=== PATIENT | female | born 1940 | race Caucasian/White ===

== ENCOUNTER → 2016-11-21 | Outpatient (CLI) | payer MEDICARE, OTHER ==
[~2016-11-21] MED LIST: AMBIEN 5MG TABLE5 MG PO; COMPAZINE 110 MG/TAB PO; DIOVAN HCT PO; ERY-TAB250 MG PO; FERROUS SU325 MG/TAB PO; FLONASE NASAL S16 GM NS; FOLIC ACID PO; GLUCOSAMINE/CHONDROI PO; I-CAPS PO; MAG-OX 400400 MG/TAB PO; NORCO 325 MG-51 TAB PO; PHARMASSURE ZIN50 MG PO; PHENERGAN 25 TA25 MG PO; PREVACID 30MG30 M1 PO; SIMVASTATIN10 MG PO; STOOL SOFTENER100 MG PO; TYLENOL PM PO; VITAMIN C250250 MG PO; ZOFRAN8 MG PO
== END ==
LOC: COL.RAD 11-20 07:30
DX: C16.0 Malignant neoplasm of cardia (principal); D37.6 Neoplasm of uncertain behavior of liver, gallbladder and bile ducts; M79.89 Other specified soft tissue disorders; I71.2 Thoracic aortic aneurysm, without rupture; K80.80 Other cholelithiasis without obstruction; R91.8 Other nonspecific abnormal finding of lung field; R64 Cachexia; Z92.3 Personal history of irradiation; Z92.21 Personal history of antineoplastic chemotherapy; Z90.710 Acquired absence of both cervix and uterus
CPT/HCPCS: J1644; Q9967

== ENCOUNTER 2018-03-26 10:25 | Emergency (ER) | payer MEDICARE, OTHER ==
[~2018-03-26] VITALS: Ht 157.5 cm; Wt 35.9 kg
[2018-03-26 10:31] VITALS: BP 100/61; PULSE 70; TEMP 97.9
[2018-03-26] MEDS ORDERED: CARDIZEM 60MG T60 MG PO (10:46)
[2018-03-26] MEDS ORDERED: CEPHALEXIN250 M1 PO (12:25)
== END 2018-03-26 12:31 | disposition home or self-care (01) ==
LOC: COL.ER 10:25
DX: S61.412A Laceration without foreign body of left hand, initial encounter (principal); S00.81XA Abrasion of other part of head, initial encounter; Z88.2 Allergy status to sulfonamides; W01.0XXA Fall on same level from slipping, tripping and stumbling without subsequent striking against object, initial encounter; W26.8XXA Contact with other sharp object(s), not elsewhere classified, initial encounter; Y92.009 Unspecified place in unspecified non-institutional (private) residence as the place of occurrence of the external cause

== ENCOUNTER 2018-05-15 07:10 | Emergency (ER) | payer MEDICARE, OTHER ==
[~2018-05-15] VITALS: Ht 157.5 cm; Wt 36.4 kg
[~2018-05-15 07:10] MED LIST changes: +CARDIZEM 60MG T60 MG PO; +CEPHALEXIN250 M1 PO
[2018-05-15 07:12] VITALS: TEMP 98.2
[2018-05-15] MEDS ORDERED: TYLENOL 500MG500 MG PO (07:18)
[2018-05-15] MEDS ORDERED: NORCO2.5 PO (08:45)
[2018-05-15 08:55] VITALS: BP 148/89; PULSE 74
== END 2018-05-15 08:56 | disposition home or self-care (01) ==
LOC: COL.ER 07:10
DX: M54.5 Low back pain (principal); I10 Essential (primary) hypertension; Z90.89 Acquired absence of other organs; Z90.710 Acquired absence of both cervix and uterus; Z88.2 Allergy status to sulfonamides
CPT/HCPCS: J1885

== ENCOUNTER 2018-12-09 14:21 | Emergency (ER) | payer MEDICARE, OTHER ==
[~2018-12-09] VITALS: Ht 154.9 cm; Wt 35.5 kg
[~2018-12-09 14:21] MED LIST changes: +NORCO2.5 PO; +TYLENOL 500MG500 MG PO
[2018-12-09 14:27] VITALS: TEMP 98.1
[2018-12-09] MEDS ORDERED: PRILOSEC 20MG20 MG PO (14:44)
[2018-12-09 16:30] VITALS: BP 167/86; PULSE 67
[2018-12-09] MEDS ORDERED: NORCO 325 MG-51 TAB PO (16:49)
== END 2018-12-09 17:15 | disposition home or self-care (01) ==
LOC: COL.ER 14:21
DX: S82.001A Unspecified fracture of right patella, initial encounter for closed fracture (principal); Z85.028 Personal history of other malignant neoplasm of stomach; W01.0XXA Fall on same level from slipping, tripping and stumbling without subsequent striking against object, initial encounter; Y92.512 Supermarket, store or market as the place of occurrence of the external cause
CPT/HCPCS: L1846

== ENCOUNTER 2019-01-14 13:40 | Inpatient (IN) | payer MEDICARE, OTHER ==
[~2019-01-14] VITALS: Ht 154.9 cm; Wt 34.2 kg
[~2019-01-14 13:40] MED LIST changes: +PRILOSEC 20MG20 MG PO
[2019-01-14] MEDS ORDERED: COLACE 100100 MG/CAP PO (15:01)
[2019-01-14] MEDS ORDERED: OCUVITE1 TA1 PO (15:01)
[2019-01-14 16:24] LABS: BASO % 0.2 % (0.0-2.0); EOS % 0.4 % (0-4.0); GRAN # 8.7 (1.4-6.5); GRAN % 83.9 % (42.2-75.2); HEMATOCRIT 39.6 % (37.0-47.0); HEMOGLOBIN 13.6 g/dl (12.5-16.0); LYMPH # 0.7 (1.2-3.4); LYMPH % 7.1 % (20.0-51.0); MEAN CELL VOLUME 99 fl (80.0-100.0); MEAN CORPUSCULAR HEMOGLOBIN 34 pg (27.0-31.0); MEAN CORPUSCULAR HGB CONC 34 g/dl (33.0-37.0); MEAN PLATELET VOLUME 8.8 fl (7.4-10.4); MONO # 0.8 (0.1-0.6); MONO % 8.1 % (1.7-9.3); PLATELET COUNT 165 K/mm3 (130-400); REDCELL DISTRIBUTION WIDTH-CV 13.4 % (11.5-14.5)
[2019-01-14 16:33] LABS: COLLECTION METHOD CATHETER
[2019-01-14 16:39] LABS: ALBUMIN 3.1 gm/dL (3.5-5.0); BILIRUBIN,TOTAL 0.8 mg/dL (0.0-1.0); C-REACTIVE PROTEIN 5.3 mg/dL (0.0-0.9); CALCIUM 8.9 mg/dL (8.4-10.2); CREATININE, serum 0.46 (0.52-1.25); PHOSPHOROUS 2.7 mg/dL (2.5-4.5); POTASSIUM 4.2 mmol/L (3.4-5.0); TOTAL PROTEIN 6.1 gm/dL (6.4-8.2)
[2019-01-14 16:43] LABS: MUCOUS Present /lpf; PH 7 (5-8); SQUAMOUS EPITHELIAL 0-2 /hpf; URINE APPEARANCE Clear; URINE BACTERIA None Seen /hpf; URINE BILIRUBIN Negative (NEGATIVE); URINE BLOOD Negative (NEGATIVE); URINE COLOR Yellow; URINE GLUCOSE Negative (NEGATIVE); URINE KETONE Negative (NEGATIVE); URINE LEUKOCYTE ESTERASE Negative (NEGATIVE); URINE NITRATE Negative (NEGATIVE); URINE PROTEIN(semi-quant) Negative (NEGATIVE); URINE RBC 0-2 /hpf; URINE UROBILINOGEN Negative (NEGATIVE)
--- NOTE | 2019-01-14 17:48 | NUR ---
Patient up from ER. Notified Dr. Williamson that patient is up in room 323. Per Dr. Williamson patient was seen by her in the ER, will enter orders.
[2019-01-14 17:50] VITALS: BP 169/85; PULSE 71; TEMP 98.3
--- NOTE | 2019-01-14 19:14 | NUR ---
Reported off to Jackie MARIE.
[2019-01-14 19:59] VITALS: BP 167/77; PULSE 70; TEMP 98.2
--- NOTE | 2019-01-14 20:00 | NUR ---
PATIENT IS ORIENTED BUT DROWSY. VERY THIN, MALNURISHED FEMALE WITH MANY BONY PROMINENCES. HEALING STAGE 1 ULCER TO COCCYX WITH DRESSING. PATIENT ADMITED FOR FAILURE TO THRIVE. DNR. HX OF GI CANCER. PATIENT HAS J TUBE PLACE ON THURSDAY AT . J TUBE HAS FOUL ODOR WITH MOD AMOUNTS OF YELLOW DRAINAGE NOTED. ABD APPLIED WITH PAPER TAPE OVER J TUBE. NO TUBE FEEDINGS HAVE BEEN STARTED YET. ER REPORTED LITTLE URINE OUTPUT. PATIENT GIVEN FLUIDS BOLUS AND STRAIGHT CATHED FOR 75CC. PATIENT REPORTS ITS NORMAL FOR HER TO ONLY VOID TWICE IN 24 HOURS. IV FLUIDS INFUSING INTO LEFT FORARM IV VIA PUMP. DIETARY CONSULT ORDERED. PT/OT/ST WORKING WITH PATIENT. PATIENT IS VERY WEAK WITH NO APPETITE. DENIES C/O N/V AT THIS TIME. HEAD TO TOE ASSESSMENT COMPLETE. CALL LIGHT IN REACH. LIGHTS TURNED DOWN.
[2019-01-15] VITALS (7 sets, daily range): BP systolic 142–166; BP diastolic 69–83; PULSE 68–79; TEMP 97.5–98.3
[2019-01-15 06:33] LABS: ALBUMIN 2.9 gm/dL (3.5-5.0); BILIRUBIN,TOTAL 0.9 mg/dL (0.0-1.0); CALCIUM 8.7 mg/dL (8.4-10.2); CREATININE, serum 0.5 (0.52-1.25); MAGNESIUM 1.9 mg/dL (1.6-2.3); PHOSPHOROUS 2.8 mg/dL (2.5-4.5); POTASSIUM 4.6 mmol/L (3.4-5.0); TOTAL PROTEIN 5.7 gm/dL (6.4-8.2)
--- NOTE | 2019-01-15 08:00 | NUR ---
PATIENT IS RESTING IN BED THIS MORNING WITH FAMILY PRESENT AT THE BEDSIDE. PATIENT IS A&OX4. VSS. BOWEL SOUNDS HYPOACTIVE ALL FOUR QUADRANTS. PATIENT HAS HAD NAUSEA, BUT DENIES EPISODES OF VOMITING. ALL LUNG FRIEDMAN DIMINISHED UPON AUSCULTATION. PATIENT DENIES SOB OR A PRODUCTIVE COUGH. PATIENT PASSING FLATUS. J-TUBE TO ABDOMEN AND IS CLAMPED. MALODORUS DRAINAGE PRESENT ON ABD PAD. STAGE 1 PRESSURE ULCER TO COCCYX, BARRIER CREAM AND NEW MEPLEX APPLIED. GENERALIZED WEAKNESS NOTED. IV FLUIDS INFUSING TO LEFT FOREARM IV VIA PUMP. NATHAN REPORTS PAIN IN HER SHOULDERS. K-PAD APPLIED TO UPPER BACK. CALL LIGHT WITHIN REACH. PATIENT DENIES ANY OTHER NEEDS AT THIS TIME.
--- NOTE | 2019-01-15 11:33 | NUR ---
, grandson and grandaughter were present. Nurse came in during my visit. Family and patient were in good spirits. I visited, listened, provided spiritual care, and prayed with the family.
--- NOTE | 2019-01-15 13:00 | NUR ---
PATIENT'S DIET ADVANCED TO MECHANICAL SOFT. PATIENT TOLERATED LUNCH WITHOUT ANY COMPLAINTS OF N/V.
--- NOTE | 2019-01-15 19:20 | NUR ---
PATIENT'S J-TUBE FLUSHED WITH 30 MLS OF FREE WATER. TUBE FEEDING INITIATED AT 40 MLS/HR. HOB AT 35 DEGREE ANGLE. K-PAD IN PLACE. SCD TO LLE. BRACE TO RLE. CALL LIGHT WITHIN REACH. REPORT GIVEN TO FRANK YARBROUGH.
--- NOTE | 2019-01-15 20:00 | NUR ---
PATIENT IS VERY TIRED TONIGHT AND WANTING TO GO TO BED EARLY. TUBE FEEDINGS STARTED, PATIENT TOLERATING WELL SO FAR. HEAD TO TOE ASSESSMENT COMPLETE. VSS. NO C/O PAIN. LIGHTS TURNED DOWN. PATIENT TRYING TO SLEEP. CALL LIGHT IN REACH.
[2019-01-16 04:00] VITALS: BP 153/73; PULSE 67; TEMP 97.5
--- NOTE | 2019-01-16 07:40 | NUR ---
PATIENT'S J-TUBE FEEDING STOPPED PER BAKERY MACHINE MECHANIC ORDERS. PATIENT TOELRATED WELL. J-TUBE FLUSHED WITH 30 MLS OF FREE WATER. J-TUBE CLAMPED. J-TUBE SITE CLEANED AND RE-DRESSED WITH DRAIN GAUZE, ABD PAD AND HYPAFIX. CALL LIGHT WITHIN REACH. NO OTHER NEEDS AT THIS TIME.
[2019-01-16 08:00] VITALS: BP 118/69; PULSE 66; TEMP 98.4
--- NOTE | 2019-01-16 08:00 | NUR ---
PATIENT IS DROWSY AND RESTING IN BED THIS MORNING, BUT IS EASILY AROUSABLE TO NAME. PATIENT IS A&OX4. VSS. BOWEL SOUNDS ACTIVE ALL FOUR QUADRANTS. PATIENT TOLERATING MECHANICAL SOFT DIET AND NOCTURNAL TUBE FEEDINGS WITHOUT ANY COMPLAINTS OF N/V. GENERALIZED WEAKNESS NOTED. J-TUBE TO ABDOMEN WITH MALODORUS DRAINAGE ON DRESSING NOTED. REDNESS UNDER J-TUBE DRESSING NOTED. DR. DENISE NOTIFIED. STAGE 1 PRESSURE ULCER TO COCCYX WITH MEPLEX IN PLACE. INT TO LEFT FOREARM. POSITIVE PEDAL PULSES EQUAL BILATERALLY. PRESENT AT THE BEDSIDE. CALL LIGHT WITHIN REACH. PATIENT DENIES ANY OTHER NEEDS AT THIS TIME.
[2019-01-16] MEDS ORDERED: COLACE 100100 MG/CAP PO (11:52)
[2019-01-16] MEDS ORDERED: MIRALAX PA17 GM/Dose PO (11:53)
[2019-01-16] MEDS ORDERED: DESENEX21 TP (11:53)
--- NOTE | 2019-01-16 11:57 | NUR ---
protective services case worker met with patient to further discuss discharge plan regarding home health options. Patient stated she is scheduled to start physical therapy for her fractured patella with [facility] on 01/19/19 and desire assistance via home health with bathing and physical therapy prior to starting [facility] physical therapy. protective services case worker provided the Medicare home health options.gov resource list. Patient chose [facility] and social sciences chair faxed face sheet, -progress notes, physical therapy evaluations, and history and physical to [phone] to make a home health referral. Patient's home phone number is [phone], her cell phone is [phone], and her 's (Bill) cell phone is [phone]. Patient currently receives [employer] cleaning services every 2 weeks at home which is $115 per visit for 1-2 hours of cleaning for 2 [employer] employees. youth services librarian will follow as needed once hearing on acceptance from [facility].
[2019-01-16 12:12] VITALS: BP 157/77; PULSE 72; TEMP 98.4
--- NOTE | 2019-01-16 15:50 | NUR ---
PATIENT'S LEFT FOREARM INT DISCONTINUED PER PENDING DISCHARGE. PATIENT TOLERATED WELL. DISCHARGE INSTRUCTIONS REVIEWED WITH PATIENT AND . ALL QUESTIONS ANSWERED. PATIENT PERSONAL BELONGINGS AND SUPPLIES GATHERED. PATIENT TAKEN TO PERSONAL VEHICLE VIA WHEELCHAIR BY SURGICAL STAFF. PATIENT DISCHARGED.
== END 2019-01-16 15:50 | disposition home health service (06) | DRG 641 ==
LOC: COL.ER 13:40 → SURG 17:04
PROVIDERS: Emergency Medicine; ADMIT Family Medicine
DX: E43 Unspecified severe protein-calorie malnutrition (principal); Z68.1 Body mass index [BMI] 19.9 or less, adult; R62.7 Adult failure to thrive; Z66 Do not resuscitate; L89.151 Pressure ulcer of sacral region, stage 1; Z85.028 Personal history of other malignant neoplasm of stomach; R53.81 Other malaise; S82.001D Unspecified fracture of right patella, subsequent encounter for closed fracture with routine healing; Z91.048 Other nonmedicinal substance allergy status; Z88.2 Allergy status to sulfonamides; K59.00 Constipation, unspecified; Z93.4 Other artificial openings of gastrointestinal tract status; E16.2 Hypoglycemia, unspecified; E55.9 Vitamin D deficiency, unspecified
CPT/HCPCS: 99222-AI; 99232-AI; 99239; J7030

== ENCOUNTER 2019-08-03 16:58 | Emergency (ER) | payer MEDICARE, OTHER ==
[~2019-08-03] VITALS: Ht 154.9 cm; Wt 45.0 kg
[~2019-08-03 16:58] MED LIST changes: +COLACE 100100 MG/CAP PO; +DESENEX21 TP; +MIRALAX PA17 GM/Dose PO; +OCUVITE1 TA1 PO
[2019-08-03 17:00] VITALS: BP 138/67; TEMP 97.7
[2019-08-03 18:00] VITALS: PULSE 76
== END 2019-08-03 18:00 | disposition home or self-care (01) ==
LOC: COL.ER 16:58
DX: K94.23 Gastrostomy malfunction (principal); Z85.028 Personal history of other malignant neoplasm of stomach

== ENCOUNTER 2019-08-23 11:55 | Emergency (ER) | payer MEDICARE, OTHER ==
[~2019-08-23] VITALS: Ht 154.9 cm; Wt 45.0 kg
[2019-08-23 12:04] VITALS: BP 117/68; TEMP 98.3
[2019-08-23 13:09] VITALS: PULSE 75
== END 2019-08-23 13:06 | disposition home or self-care (01) ==
LOC: COL.ER 11:55
DX: K94.23 Gastrostomy malfunction (principal)
CPT/HCPCS: 41013; B4087

== ENCOUNTER 2019-09-20 15:39 | Emergency (ER) | payer MEDICARE, OTHER ==
[~2019-09-20] VITALS: Ht 157.5 cm; Wt 45.5 kg
[2019-09-20 15:51] VITALS: BP 137/89; TEMP 98.2
[2019-09-20] MEDS ORDERED: CEPHALEXIN500 M1 PO (17:09)
[2019-09-20 17:13] VITALS: PULSE 76
== END 2019-09-20 17:13 | disposition home or self-care (01) ==
LOC: COL.ER 15:39
DX: S61.213A Laceration without foreign body of left middle finger without damage to nail, initial encounter (principal); Z23 Encounter for immunization; W26.8XXA Contact with other sharp object(s), not elsewhere classified, initial encounter; Y92.009 Unspecified place in unspecified non-institutional (private) residence as the place of occurrence of the external cause

== ENCOUNTER 2019-10-21 10:37 | Emergency (ER) | payer MEDICARE, OTHER ==
[~2019-10-21] VITALS: Ht 157.5 cm; Wt 46.4 kg
[~2019-10-21 10:37] MED LIST changes: +CEPHALEXIN500 M1 PO
[2019-10-21 10:54] VITALS: BP 140/76; PULSE 68; TEMP 97.2
== END 2019-10-21 11:30 | disposition home or self-care (01) ==
LOC: COL.ER 10:37
DX: Z43.1 Encounter for attention to gastrostomy (principal)
CPT/HCPCS: 40113

== ENCOUNTER 2020-05-31 10:44 | Emergency (ER) | payer MEDICARE, OTHER ==
[~2020-05-31] VITALS: Ht 157.5 cm; Wt 48.2 kg
[2020-05-31 11:02] VITALS: TEMP 97.9
[2020-05-31 11:54] VITALS: BP 124/81; PULSE 76
== END 2020-05-31 11:53 | disposition home or self-care (01) ==
LOC: COL.ER 10:44
DX: K94.23 Gastrostomy malfunction (principal); Z88.2 Allergy status to sulfonamides
CPT/HCPCS: 40113

== ENCOUNTER 2020-06-06 08:58 | Emergency (ER) | payer MEDICARE, OTHER ==
[~2020-06-06] VITALS: Ht 157.5 cm; Wt 48.2 kg
[2020-06-06 09:04] VITALS: BP 138/94; PULSE 78; TEMP 98.4
== END 2020-06-06 09:20 | disposition home or self-care (01) ==
LOC: COL.ER 08:58
DX: K94.23 Gastrostomy malfunction (principal)
CPT/HCPCS: 40129

== ENCOUNTER 2021-06-19 09:58 | Emergency (ER) | payer MEDICARE, OTHER ==
[~2021-06-19] VITALS: Ht 154.9 cm; Wt 50.0 kg
[2021-06-19 10:20] VITALS: BP 146/96; TEMP 98.8
[2021-06-19 11:14] VITALS: PULSE 76
== END 2021-06-19 11:14 | disposition home or self-care (01) ==
LOC: COL.ER 09:58
DX: K94.23 Gastrostomy malfunction (principal)
CPT/HCPCS: 31860; A4314

== ENCOUNTER → 2021-06-26 | Day surgery (SDC) | payer MEDICARE, OTHER ==
[2021-06-26 08:10] VITALS: BP 127/95; PULSE 76
== END ==
LOC: SDCO 07:42
DX: Z46.59 Encounter for fitting and adjustment of other gastrointestinal appliance and device (principal)
CPT/HCPCS: 40129

== ENCOUNTER → 2021-06-28 | Outpatient (CLI) | payer MEDICARE, OTHER | LOC: COL.RAD 08:39 | DX: R13.14 Dysphagia, pharyngoesophageal phase (principal) ==

== ENCOUNTER 2021-08-28 08:47 | Emergency (ER) | payer MEDICARE, OTHER ==
[~2021-08-28] VITALS: Ht 157.5 cm; Wt 50.0 kg
[2021-08-28 09:25] VITALS: TEMP 98
[2021-08-28] MEDS ORDERED: LEVAQUIN 750MG750 M1 PO (10:31)
[2021-08-28] MEDS ORDERED: TESSALON P100 MG/CAP PO (10:31)
[2021-08-28 10:38] VITALS: BP 136/81; PULSE 92
== END 2021-08-28 10:42 | disposition home or self-care (01) ==
LOC: COL.ER 08:47
DX: J18.9 Pneumonia, unspecified organism (principal); Z88.2 Allergy status to sulfonamides; Z20.822 Contact with and (suspected) exposure to COVID-19

== ENCOUNTER → 2021-10-03 | Outpatient (CLI) | payer MEDICARE, OTHER ==
[~2021-10-03] MED LIST changes: +LEVAQUIN 750MG750 M1 PO; +TESSALON P100 MG/CAP PO
== END ==
LOC: COL.RAD 12:11
DX: M50.21 Other cervical disc displacement, high cervical region (principal)

== ENCOUNTER 2022-05-05 16:27 | Emergency (ER) | payer MEDICARE, OTHER ==
[~2022-05-05] VITALS: Ht 154.9 cm; Wt 52.3 kg
[2022-05-05 16:50] VITALS: TEMP 98.1
[2022-05-05 19:16] VITALS: BP 161/92; PULSE 68
== END 2022-05-05 19:28 | disposition home or self-care (01) ==
LOC: COL.ER 16:27
DX: U07.1 COVID-19 (principal)
CPT/HCPCS: Q0222

== ENCOUNTER 2023-10-27 16:45 | Observation (INO) | payer MEDICARE ==
[~2023-10-27] VITALS: Ht 154.9 cm; Wt 55.5 kg
--- NOTE | 2023-10-27 00:30 | NUR ---
Providers H&P note says to continue home tube feedings and hospitalist verbalized verification to continue home tube feeding with supplies patient brought from home.
[2023-10-27] MEDS ORDERED: fentaNYL 50 MCG/ML 2 ML VIAL IV ONE (18:30)
[2023-10-27 18:44] LABS: BASO % 0.5 % (0.0-2.0); EOS # 0.1 K/mm3 (0.0-0.7); EOS % 1.2 % (0.0-4.0); GRAN % 60.8 % (42.2-75.2); HEMATOCRIT 41.7 % (37.0-47.0); HEMOGLOBIN 13.7 g/dl (12.5-16.0); LYMPH # 1.9 K/mm3 (1.2-3.4); LYMPH % 23.6 % (20.0-51.0); MEAN CELL VOLUME 103 fl (80.0-100.0); MEAN CORPUSCULAR HEMOGLOBIN 34 pg (27-31); MEAN CORPUSCULAR HGB CONC 33 g/dl (33.0-37.0); MEAN PLATELET VOLUME 9.3 fl (7.4-10.4); MONO # 1.1 K/mm3 (0.1-0.6); MONO % 13.7 % (1.7-9.3); PLATELET COUNT 261 K/mm3 (130-400); RED BLOOD COUNT 4.04 M/mm3 (4.10-5.30); REDCELL DISTRIBUTION WIDTH-CV 13.6 % (11.5-14.5)
[2023-10-27 19:14] LABS: ALBUMIN 3.7 gm/dL (3.4-4.8); BILIRUBIN,TOTAL 0.4 mg/dL (0.2-1.2); C-REACTIVE PROTEIN 0.24 mg/dL (0.00-0.50); CALCIUM 9.5 mg/dL (8.4-10.2); CREATININE, serum 0.93 mg/dL (0.57-1.11); POTASSIUM 4.7 mmol/L (3.5-4.5); TOTAL PROTEIN 7.2 gm/dL (6.2-8.1)
[2023-10-27] MEDS ORDERED: diphenhydrAMINE 50 MG/ML 1 ML VIAL IV ONE (19:45)
--- NOTE | 2023-10-27 23:05 | NUR ---
Recievied report from FRANK Antonio. All questions answered.
[2023-10-27] MEDS ORDERED: VITAMIN D31000 I1 PO (23:16)
--- NOTE | 2023-10-27 23:30 | NUR ---
Patient arrived to the unit at this time with at bedside. Rates her pain at 7/10 at this time. Water and warm blanket provided. Home tube feeding running at 75mL/hr. Assessment and med rec complete. IV in right AC flushes easily with no complications. Oriented patient to room, bed, call light, bathroom, and phone. Denies any needs at this time. Call light and personal items in reach. Bed in low position and bed alarm on.
[2023-10-28] VITALS (8 sets, daily range): BP systolic 117–153; BP diastolic 66–84; PULSE 71–78; TEMP 97.9–98.2
--- NOTE | 2023-10-28 | NUR ---
Tension release massage offered to patient. Massaged patient for about 10 minutes. Patient stated that it did help some and now rates her pain about 5-6/10 pain.
[2023-10-28] MEDS ORDERED: fentaNYL 50 MCG/ML 2 ML VIAL IV PRN (00:15)
[2023-10-28] MEDS ORDERED: Polyethylene Glycol 3350 17 GM PDS PO PRN (00:30)
[2023-10-28] MEDS ORDERED: oxyCODONE 5 MG TAB PO PRN (00:30)
[2023-10-28] MEDS ORDERED: Ibuprofen 400 MG TAB PO PRN (00:30)
[2023-10-28] MEDS ORDERED: Ondansetron 4 MG/2 ML VIAL IV PRN (00:30)
[2023-10-28] MEDS ORDERED: Acetaminophen 500 MG TAB PO SCH (01:00)
--- NOTE | 2023-10-28 05:50 | NUR ---
Patient resting in bed. States she does not have any pain this morning. Denies any needs. Tube feeding still running at 75mL/hr. No other changes over night. Call light and personal items in reach. Bed in low position and bed alarm on.
[2023-10-28] MEDS ORDERED: Omeprazole 20 MG **** subs to Pantoprazole 40 MG PO SCH (07:00)
[2023-10-28] MEDS ORDERED: Cholecalciferol (Vit D3) 1000 Units TAB PO SCH (09:00)
--- NOTE | 2023-10-28 12:54 | NUR ---
Initial visit; Patient thanked Reporting Process Consultant for looking in on her and offering God's blessings. Breann and Reporting Process Consultant had a good visit and prayed together for discernment concerning the reason for her health issues. Reporting Process Consultant will keep Breann in her prayers.
--- NOTE | 2023-10-28 14:01 | NUR ---
PATIENT RECEIVED DISCHARGE PAPERWORK WITH FOLLOW UP APPOINTMETNS. NO NEW MEDICATIONS ADDED. DAUGHTER AND WERE AT THE BEDSIDE. IV DISCONTINUED NO PROBLEMS WITH TRANSPORT OUT OF BUILDING. DISCHARGE COMPLETE.
== END 2023-10-28 13:30 | disposition home or self-care (01) ==
LOC: COL.ER 16:45 → MEDICAL 20:58
PROVIDERS: Nurse Practitioner; ADMIT Internal Medicine
DX: R51.9 Headache, unspecified (principal); Z85.028 Personal history of other malignant neoplasm of stomach; Z93.1 Gastrostomy status; Z85.828 Personal history of other malignant neoplasm of skin; Z90.3 Acquired absence of stomach [part of]
CPT/HCPCS: G0378; J1200; J1650; J2765; J3010; J3475

== ENCOUNTER 2023-12-18 13:18 | Emergency (ER) | payer MEDICARE ==
[~2023-12-18] VITALS: Ht 154.9 cm; Wt 56.4 kg
[~2023-12-18 13:18] MED LIST changes: +VITAMIN D31000 I1 PO
[2023-12-18] MEDS ORDERED: Home HYDROcodone/Acetaminophen 5/325 MG #4 TABS/PACK PO ONE (16:00)
[2023-12-18 16:19] VITALS: BP 147/81; PULSE 70; TEMP 98
== END 2023-12-18 16:19 | disposition home or self-care (01) ==
LOC: COL.ER 13:18
DX: S30.0XXA Contusion of lower back and pelvis, initial encounter (principal); W18.30XA Fall on same level, unspecified, initial encounter